=== PATIENT | female | born 1990 | race Caucasian/White ===

== ENCOUNTER 2018-08-30 12:19 | Inpatient (IN) | payer OTHER ==
[~2018-08-30] VITALS: Ht 165.1 cm; Wt 81.6 kg
[2018-08-30 12:40] VITALS: BP 127/85
[2018-08-30] MEDS ORDERED: FAMOTIDINE(*) 20MG/50ML PREMIX 50 ML IVPB PRN (13:06)
[2018-08-30] MEDS ORDERED: BUPIVACAINE 0.5% INJ 30ML VIAL EPI PRN (13:10)
[2018-08-30] MEDS ORDERED: METOCLOPRAMIDE 10 MG/2 ML SDV IVP PRN (13:10)
[2018-08-30] MEDS ORDERED: ONDANSETRON 4 MG/2 ML VIAL IVP PRN (13:10)
[2018-08-30] MEDS ORDERED: FLUSH 10 ML SYR IVP PRN (13:10)
[2018-08-30] MEDS ORDERED: FENTANYL/ROPIVACAINE 100 ML BAG EPI PRN (13:10)
[2018-08-30] MEDS ORDERED: LIDO/EPI 2% MPF 1:200,000 20ML EPI PRN (13:10)
[2018-08-30] MEDS ORDERED: LIDOCAINE 1% LOCAL 300 MG/30ML INJ PRN (13:10)
[2018-08-30] MEDS ORDERED: LIDOCAINE/PF 2% 200MG/10ML AMP 200 MG/10 ML AMPUL EPI PRN (13:10)
[2018-08-30] MEDS ORDERED: fentaNYL CITR 100 MCG/2 ML AMP IT PRN (13:10)
[2018-08-30] MEDS ORDERED: BUPIVACAINE 0.25% MPF INJ EPI PRN (13:10)
[2018-08-30] MEDS ORDERED: LIDOCAINE/SOD BICARB 8.4% SYR SC PRN (13:10)
[2018-08-30] MEDS ORDERED: PENICILLIN G 5 MILLUN VIAL 5 MIU in NS(*) 0.9% 100 ML MINI-BAG 100 ML IVPB ONE (13:30)
[2018-08-30] MEDS: LR(*) 1000 ML BAG 1,000 ML IV SCH ×2 (13:51→16:16)
[2018-08-30 13:53] LABS: PLATELET COUNT, AUTOMATED 219 K/uL (150-450)
[2018-08-30 14:20] VITALS: BP 127/88; Ht 165.1 cm; Wt 81.6 kg
--- NOTE | 2018-08-30 15:08 | History & Physical ---
History of Present Illness Age of Patient: 27 : 1 Para or TPAL: 0 EDC per LMP: Aug 27, 2018 Estimated Gestational Age: 40.3 Chief Complaint SROM, contractions History of Present Illness PT presented to [facility] with c/o SROM. SROM confirmed by +amnisure. Pt reports SROM at 9 am. She was sent to L&D for admission. care is uncomplicated. PT is GBS positive. History Patient's Blood Type: O Positive Rubella Status: Immune Group B Strep Screen: Positive Allergies: Coded Allergies: No Known Drug Allergies (Unverified , 08/30/18) Review of Systems Constitutional: No Fever, No Weight Loss Exam General Exam Vital Signs Vital Signs Date Time Temp Pulse Resp B/P (MAP) Pulse Ox O2 Delivery O2 Flow Rate FiO2 08/30/18 14:20 98.0 85 16 127/88 (101) Room Air General Apperance: Alert/Awake/No Acute Distress Neuro: No Gross deficits Respiratory: No Respiratory Distress Abdomen: Gravid - Non-Tender Vaginal Discharge/Fluid?: Clear Fluid Cervical Dialation: 4 Cervical Effacement (%): 100 Cervical Consistency: Soft Cervical Position: Anterior Station: -1 Presentation: Vertex Uterine Contraction Strength: Moderate Fetus Feeling Movement?: Yes Heart Tone Variabilty: Moderate FHT Accelerations: 15X15 FHT Decelerations: None FHT Category: I Medical Decision Making Data Points Result Diagram: 08/30/18 1340 VTE Prophylasis: Adult Deep Vein Thrombosis/Pulmonary: No Pharmacological Contraindicati: Pt at Low Risk for VTE Mechanical Contraindications: Pt at Low Risk for VTE Assessment and Plan OUTPLACEMENT CONSULTANT Assessment: Stable OUTPLACEMENT CONSULTANT Plan: Routine Labor Care (Start PCN for gbs prophylaxis. If no progression by 6 hours post SROM will start pitocin for augmentation. ) ZEESHAN DOHERTY DO Aug 30, 2018 15:08
--- NOTE | 2018-08-30 15:50 | Labor Progress Note ---
Labor Subjective Progress Notes Subjective Pt uncomfortable, considering epidural Vaginal Discharge/Fluid: Clear Fluid Labor Pain: Moderate Labor Objective Vital Signs Vital Signs Date Time Temp Pulse Resp B/P (MAP) Pulse Ox O2 Delivery O2 Flow Rate FiO2 08/30/18 14:20 98.0 85 16 127/88 (101) Room Air Cervical Dialation: 6.5 Cervical Effacement (%): 100 Cervical Consistency: Soft Cervical Position: Anterior Station: -1 Presentation: Vertex Uterine Contraction Strength: Moderate Fetus Heart Tone Variabilty: Moderate FHT Accelerations: 15X15 FHT Decelerations: None FHT Category: I General Exam General Appearance: Alert/Awake/No Acute Distress Abdomen: Gravid - Non-Tender Psychological: Alert & Oriented X3, Appropriate Mood & Affect Other Result Diagram: 08/30/18 1340 Assessment and Plan 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
[2018-08-30] MEDS: fentaNYL CITR 100 MCG/2 ML AMP IVP PRN ×3 (15:54→17:47)
[2018-08-30] MEDS ORDERED: ePHEDrine 25 MG/5 ML DISP.SYR IVP ONE (16:05)
[2018-08-30] MEDS ORDERED: BUPIVACAINE 0.25% MPF INJ ONE (16:05)
[2018-08-30] MEDS ORDERED: fentaNYL CITR 100 MCG/2 ML AMP ONE (16:05)
[2018-08-30] MEDS ORDERED: ONDANSETRON 4 MG/2 ML VIAL ONE (16:05)
[2018-08-30] MEDS ORDERED: FENTANYL/ROPIVACAINE 100ML BAG 0 ML ONE (16:06)
[2018-08-30] MEDS: OXYTOCIN 30 UNIT/D5LR 500 ML 500 ML IV PRN ×2 (17:16→18:26)
--- NOTE | 2018-08-30 17:28 | Anesthesia OB Pre-Anes Eval ---
History of Present Illness Anesthesia Start Date: Aug 30, 2018 Anesthesia Start Time: 16:08 OB Anesthesia Diagnosis: spontaneous labor EDC: Aug 27, 2018 : 1 Para: 0 Vital Signs: Vital Signs 08/30/18 14:20 Temp 98.0 Pulse 85 Resp 16 B/P (MAP) 127/88 (101) O2 Delivery Room Air Pain Ratin Heart Tones: 132 Result Diagram: 08/30/18 1340 Height (Inches): 65.00 Weight (Pounds): 180 Past Medical History Medical History: no pertinent history Surgical History: no surgical history Attended Childbirth Classes?: No Hx Anesthesia Reactions: No Hx Family Anesthesia Reaction: No Current Medications: pain medication Allergies: Coded Allergies: No Known Drug Allergies (Unverified , 08/30/18) Anesthesia OB ROS Neurological: No migraines/headaches, No seizures, No neuropathy, No other ENT: Denies Tooth caps, Denies Loose teeth, Denies Chipped teeth, Denies Dentures, Denies Bridges, Denies Retainers, Denies Veneers, Denies Implants, Denies Tongue ring, Denies Other Pulmonary: No asthma, No smoker (pks/day/yrs), No other Airway Class: ll Cardiovascular ROS: No edema, No arrhythmia, No other GI ROS: clear liquids Last Solids Date: Aug 30, 2018 Last Solids Time: 12:30 ROS: No Herpes, No STD(s), No Liver Disease, No Renal Disease, No Other Endocrine ROS: No diabetes, No gestational diabetes, No thyroid disorder, No other Musculoskeletal ROS: No low back pain, No low back injury, No scoliosis, No other Assessment and Plan Anesthesia Plan: SAB Assessment: Got intrathecal dos in when pt screamed she had to push and couldn't hold still. no cath placed, supine . Complete and 1+ station. Pushung started Anesthesia Stop Day: Aug 30, 2018 Anesthesia Stop Time: 17:05 MADDY BAER CRNA Aug 30, 2018 17:28
[2018-08-30] MEDS ORDERED: PENICILLIN G 2.5 MILLUN/100 ML 100 ML IVPB SCH (17:30)
--- NOTE | 2018-08-30 17:32 | Procedure Note ---
Anesthetic Placement Note Anesthesia Plan: SAB Anesthesia Technique: Patient Sitting Anesthesia Prep: Chlorhexidine Interspace: L 3-4 Local Anesthetic: 1% Lidocaine Amount Local - cc's: 3 Anesthesia Needle: 17g Touhy/Schliff Anesthesia Attempts: 1 Loss of Resistance: Normal Saline Depth of OBINNA (cm): 5 Cerebral Spinal Fluid: Yes, Clear Anesthesia Tray: Lot Number ([id number]), Expiration Date (12/24), Reference Number ([id number]) Comment: intrathecal dose placed and pt unable to hold still for cath screaming she had to push. Supine, complete +1. Pushing started Anesthesia Medications: Intrathecal Dose: mcg Fentanyl (10), mg Marcaine MPF (2.5), Time (1625) Complications: None MADDY BAER CRNA Aug 30, 2018 17:32
[2018-08-30] MEDS ORDERED: PROPOFOL EMUL(*) 10MG/ML 20 ML 20 ML ONE (17:34)
[2018-08-30] MEDS ORDERED: LIDOCAINE 1%MDV(*)200 MG/20 ML 1 ML ONE (17:34)
[2018-08-30] MEDS ORDERED: ceFAZolin(*) 2GM/D5W 50ML 50 ML IVPB ONE (17:50)
[2018-08-30] MEDS ORDERED: METHYLERGONOVINE MAL 0.2MG/ML ONE (18:00)
[2018-08-30] MEDS ORDERED: CARBOPROST TROMETHAM 250MCG/ML IM ONLY ONE (18:05)
--- NOTE | 2018-08-30 18:18 | Anesthesia Progress Note ---
Progress/Maintenance Anesthesia Note Date: Aug 30, 2018 Anesthesia Note Time: 18:08 Pain Intensity: 8 Assessment and Plan Assessment: IV sedation w propofol for manual extraction of placenta. Propofol 90 mg given IV in increments plus 50 mcg of fentanyl that I dispensed for epidual given and charted by Devin BEAN. O2 per mask. VSS. 2nd IV started. Fluid bolus given. Anesthesia Stop Day: Aug 30, 2018 Anesthesia Stop Time: 18:08 MADYD BAER CRNA Aug 30, 2018 18:18
--- NOTE | 2018-08-30 19:03 | OB Delivery Note ---
Delivery Note Vaginal Delivery Type: Spont. Vaginal Delivery Delivery Date: Aug 30, 2018 Delivery Time: 17:04 Estimated Gestational Age(wks): 40.3 Delivery Anesthesia: Epidural Sex: Female [place] Apgars: 1 Minute (8), 5 Minute (9) Repair Needed: Episiotomy-Midline, 2nd Degree Delivery Complications: Hemorrhage (700 cc, treated with IV pitocin, IM methergine, IM hemabate and rectal cytotec) Notes: Pt pushed to deliver a viable female in the ASHISH position over a midline second degree episiotomy. vigorous at , nose and mouth bulb suctioned. 3VC clamped and cut and infant given to mother. Episiotomy repaired in usual fashion with 3.0 rapide, second degree only. Placental delivery was protracted and at 50 minutes after delivery decision was made to perform a manual removal. Pt was premedicated with IV propofol and fentanyl by Kelsie WHITTINGTON. Pt was consented and agreed. Placenta was manual extracted and noted to be intact. Uterine atony was encountered after placental delivery. IV pitocin was started. IM metherine was given and approximately 10 minutes later IM hemabate was given. Uterine tone developed after crede and bleeding slowed to normal lochia. EBL approximately 700 cc. 800 mcg rectal cytotec was placed to ensure uterine tone. Limited BSUS was performed and EMS was visualized and was without any hypoechoic foci to suggest retained placenta. Pt was made NPO at this time to watch for continued evidence of hemorrhage that may require surgical intervention. Will reassess pt after one hour. I was present for and performed entire delivery and repair. Dye Colorist Dyer in Attendence: No Copies to: LUKAS RUBIO MD ; ZEESHAN DOHERTY DO Aug 30, 2018 19:03
[2018-08-30] MEDS ORDERED: HYDROCORTISONE 2.5% CR 30GM TB PR PRN (19:05)
[2018-08-30] MEDS ORDERED: MAGNESIUM HYDROXIDE* 30ML UDCP PO PRN (19:05)
[2018-08-30] MEDS ORDERED: MISOPROSTOL 200 MCG TAB PR ONE (19:05)
[2018-08-30] MEDS ORDERED: BENZOCAINE 20% 60 ML BTL TP PRN (19:05)
[2018-08-30] MEDS ORDERED: APAP/HYDROCODONE 325/5 TAB PO PRN (19:05)
[2018-08-30] MEDS ORDERED: LANOLIN OINT 7 GM TUBE TP PRN (19:05)
[2018-08-30] MEDS ORDERED: GLYCERIN/WITCH HAZEL LEAF 1 PK TP PRN (19:05)
[2018-08-30 19:15] VITALS: BP 116/87
--- NOTE | 2018-08-30 19:44 | OB/GYN Progress Note ---
OB Subjective Progress Notes Subjective Pt feeling much better. Lochia is normal and uterus is firm per nursing. 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 ) ZEESHAN DOHERTY DO Aug 30, 2018 19:44
[2018-08-30 19:45] VITALS: BP 131/86
[2018-08-30] MEDS ORDERED: NS(*) 0.9% 1000 ML BAG 1,000 ML IV ONE (20:15)
[2018-08-30] MEDS: IBUPROFEN 800 MG TAB PO SCH (20:19)
[2018-08-30] MEDS: DOCUSATE CALCIUM 240 MG CAP PO SCH (20:19)
[2018-08-30 23:00] VITALS: BP 109/60
[2018-08-31] MEDS ORDERED: ceFAZolin(*) 2GM/D5W 50ML 50 ML IVPB ONE (02:00)
[2018-08-31 03:30] VITALS: BP 108/66
[2018-08-31] MEDS: IBUPROFEN 800 MG TAB PO SCH ×3 (05:00→21:02)
--- NOTE | 2018-08-31 06:02 | OB/GYN Progress Note ---
OB Subjective Progress Notes Subjective PT doing well. NO pain. Lochia appropriate. Voiding spontaneously and . GI: POS Flatus; NEG Nausea, NEG Vomiting : Voiding Well, Vaginal Bleeding, Scant Pain: Mild Neurological: No Headache Eyes: No Visual Disturbances OB Objective Physical Exam Vital Signs Date Time Temp Pulse Resp B/P (MAP) Pulse Ox O2 Delivery O2 Flow Rate FiO2 08/31/18 03:30 98.5 78 18 108/66 (80) 94 Room Air Intake and Output 08/31/18 07:00 Intake Total 4150 ml Output Total 1300 ml Balance 2850 ml Intake IV Total 4150 ml Output Urine Total 1300 ml # Voids 2 General Appearance: Alert/Awake/No Acute Distress Neurological: No Gross deficits Respiratory: No Respiratory Distress Abdomen: Soft, Non-Tender, Non-Distended, Fundus Firm Extremities: No Cyanosis,Clubbing or Edema Psychological: Alert & Oriented X3, Appropriate Mood & Affect Result Diagram: 08/30/18 1848 Assessment and Plan 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 Pt appears stable. Continue routine care, anticipate d/c to home tomorrow. ) ZEESHAN DOHERTY DO Aug 31, 2018 06:02
[2018-08-31 08:35] VITALS: BP 118/64
[2018-08-31] MEDS ORDERED: MEASLES,MUMP,RUBELLA VAC 0.5ML SUBQ ONE (09:00)
[2018-08-31] MEDS ORDERED: DIPHTH/TETANUS/ACEL. PERTUSSIS IM ONLY ONE (09:00)
[2018-08-31] MEDS ORDERED: INFLUENZA VIRUS VAC 0.5ML SYR IM ONLY ONE (09:00)
[2018-08-31] MEDS: MULTIVITAMINS (PRENATAL) TAB PO SCH (09:28)
[2018-08-31] MEDS: DOCUSATE CALCIUM 240 MG CAP PO SCH ×2 (09:29→21:02)
[2018-08-31 12:00] VITALS: BP 105/62
--- NOTE | 2018-08-31 13:05 | Anesthesia Post Eval Note ---
Anesthesia Post Eval Note Vital Signs 08/31/18 08/31/18 08:35 12:00 Temp 98.0 Pulse 97 Resp 18 B/P (MAP) 105/62 (76) Pulse Ox 95 O2 Delivery Room Air Pt able to participate in Eval: Yes Cardiovascular Status: Satisfactory Respiratory Status: Satisfactory Pain Managment: Satisfactory PO Nausea/Vomiting: Satisfactory Temperature Management: Satisfactory Mental Status: Satisfactory Post-Op Hydration Status: Satisfactory, Tolerating PO Well, Voiding w/o Difficulty Anesthesia Tolerance: Pt only had intrathecal dose for delivery. Satisfied w MADDY Tomas CRNA Aug 31, 2018 13:05
[2018-08-31 15:04] VITALS: BP 102/60
[2018-08-31 19:20] VITALS: BP 116/72
[2018-08-31 22:56] VITALS: BP 112/61
[2018-09-01 03:00] VITALS: BP 97/68
[2018-09-01] MEDS: IBUPROFEN 800 MG TAB PO SCH ×2 (05:39→13:50)
[2018-09-01] MEDS: DOCUSATE CALCIUM 240 MG CAP PO SCH (08:57)
[2018-09-01] MEDS: MULTIVITAMINS (PRENATAL) TAB PO SCH (08:58)
[2018-09-01 09:15] VITALS: BP 117/79
--- NOTE | 2018-09-01 12:19 | OB/GYN Progress Note ---
OB Subjective Progress Notes Subjective PT doing well. Lochia is very light to none. . Minimal pain. Ready to go home. : Voiding Well, Vaginal Bleeding, Scant Pain: Mild OB Objective Physical Exam Vital Signs Date Time Temp Pulse Resp B/P (MAP) Pulse Ox O2 Delivery O2 Flow Rate FiO2 09/01/18 09:15 98.1 72 18 117/79 (92) 08/31/18 22:56 93 08/31/18 19:20 Room Air Intake and Output 09/01/18 07:00 Intake Total 0 ml Balance 0 ml Intake Oral 0 ml # Voids 4 # Bowel Movements 1 General Appearance: Alert/Awake/No Acute Distress Neurological: No Gross deficits Respiratory: No Respiratory Distress Abdomen: Soft, Non-Tender, Non-Distended, Fundus Firm Extremities: No Cyanosis,Clubbing or Edema Psychological: Alert & Oriented X3, Appropriate Mood & Affect Result Diagram: 08/31/18 0558 Assessment and Plan 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 Pt will need appt in [address] iDll for follow up. Recommend outpatient Vit B12 and folate levels to assess for possible megaloblastic anemia based on CBC done in patient. Bleeding precautions given to pt since she did have PPH. PT to continue PNV) ZEESHAN DOHERTY DO Sep 01, 2018 12:19
[2018-09-01] MEDS ORDERED: IBUP800T37 PO (12:38)
[2018-09-01] MEDS ORDERED: Multivit/Min/Fol Ac/Iron/Pren PO (12:38)
--- NOTE | 2018-09-01 12:41 | OB/GYN Discharge Summary ---
Discharge Summary Lates Vital Signs Vital Signs Date Time Temp Pulse Resp B/P (MAP) Pulse Ox O2 Delivery O2 Flow Rate FiO2 09/01/18 09:15 98.1 72 18 117/79 (92) 08/31/18 22:56 93 08/31/18 19:20 Room Air Weight (Pounds): 180 Result Diagram: 08/31/18 0558 Condition: Improved Discharge: Home, Self [facility] Meds Active Scripts [Multivitamins () Tab] 1 EA TAB No Conflict Check, 1 EACH PO DAILY for 90 Days, #90 TAB 3 Refills Prov:ZEESHAN DOHERTY DO 09/01/18 Follow up with: Dr. Dill [phone] (6 weeks) Follow up in: 6 wks PP or PO Discharge Diet: As Tolerates Discharge Activity: No Heavy Lifting x 6 wks, Pelvic Rest (nothing in vagina for 6 weeks, including tampons and intercourse) Copies to: LUKAS DILL MD ; ZEESHAN DOHERTY DO Sep 01, 2018 12:41
== END 2018-09-01 14:40 | disposition home or self-care (01) | DRG 806 ==
LOC: OB 12:19
PROVIDERS: ADMIT Obstetrics & Gynecology; ATTEND Obstetrics & Gynecology
PROC: 10E0XZZ Delivery of Products of Conception, External Approach (ICD-10-PCS; principal; 2018-08-30)
PROC: 10D17Z9 Manual Extraction of Products of Conception, Retained, Via Natural or Artificial Opening (ICD-10-PCS; 2018-08-30)
PROC: 0W8NXZZ Division of Female Perineum, External Approach (ICD-10-PCS; 2018-08-30)
DX: O99.824 Streptococcus B carrier state complicating childbirth (principal); D62 Acute posthemorrhagic anemia; Z37.0 Single live birth; O72.1 Other immediate postpartum hemorrhage; O90.81 Anemia of the puerperium; D53.1 Other megaloblastic anemias, not elsewhere classified; Z3A.40 40 weeks gestation of pregnancy; O72.2 Delayed and secondary postpartum hemorrhage
CPT/HCPCS: 36415; 85025; 85027; 86850; 86900; 86901; J0690; J2001; J2210; J2405; J2540; J2590; J2704; J3010; J7030; J7120

== ENCOUNTER → 2018-08-30 | Outpatient (REF) | payer OTHER ==
[~2018-08-30] MED LIST: IBUP800T37 PO; Multivit/Min/Fol Ac/Iron/Pren PO
== END ==
LOC: ZZSENDIN 11:40
PROVIDERS: ATTEND Nurse Practitioner Family
DX: Z03.71 Encounter for suspected problem with amniotic cavity and membrane ruled out (principal); Z3A.40 40 weeks gestation of pregnancy
CPT/HCPCS: 84112